=== PATIENT | female | born 1955 | race Native Hawaiian/Other Pacific Islander ===

== ENCOUNTER 2017-08-28 14:50 | Outpatient (CLI) | payer OTHER ==
[~2017-08-28 14:50] MED LIST: CELEXA20 MG PO; ESTERIFIED ESTROGENS PO; LUNESTA2 MG OR; OMEP40CA PO; SIMV40TA57
== END 2017-08-28 14:53 | disposition short-term general hospital (02) ==
LOC: AMB 14:50
DX: R07.89 Other chest pain (principal); M54.89 Other dorsalgia
CPT/HCPCS: A0425; A0427

== ENCOUNTER 2017-08-28 15:01 | Emergency (ER) | payer OTHER ==
[~2017-08-28] VITALS: Ht 167.6 cm; Wt 70.3 kg
[2017-08-28 14:58] VITALS: TEMP 97.3
[2017-08-28 15:19] LABS: PLATELET COUNT 339 K/uL (152-353)
[2017-08-28 15:24] LABS: POTASSIUM 3.8 mmol/L (3.6-5.2)
[2017-08-28 16:41] VITALS: BP 160/75
== END 2017-08-28 16:41 | disposition home or self-care (01) ==
LOC: ED 15:01
DX: M51.34 Other intervertebral disc degeneration, thoracic region (principal); M47.894 Other spondylosis, thoracic region
CPT/HCPCS: 80053; 81000; 85027; 93005; 96374; 99283; J1885

== ENCOUNTER 2018-01-11 09:20 | Outpatient (CLI) | payer OTHER | END 2018-01-11 23:24 | disposition home or self-care (01) | LOC: MAMMO 09:20 | DX: Z12.31 Encounter for screening mammogram for malignant neoplasm of breast (principal) ==

== ENCOUNTER 2020-04-27 09:43 | Outpatient (CLI) | payer OTHER | END 2020-04-27 19:10 | disposition home or self-care (01) | LOC: MAMMO 09:43 | PROVIDERS: ATTEND Nurse Practitioner Family | DX: Z12.31 Encounter for screening mammogram for malignant neoplasm of breast (principal); Z13.820 Encounter for screening for osteoporosis ==

== ENCOUNTER 2022-02-10 08:25 | Outpatient (CLI) | payer OTHER | END 2022-02-10 19:02 | disposition home or self-care (01) | LOC: RAD 08:25 | PROVIDERS: ATTEND Registered Nurse | DX: R05.9 Cough, unspecified (principal) ==

== ENCOUNTER 2022-03-21 08:16 | Outpatient (CLI) | payer OTHER | END 2022-03-21 19:53 | disposition home or self-care (01) | LOC: MRI 08:16 | PROVIDERS: ATTEND Nurse Practitioner Family | DX: R25.1 Tremor, unspecified (principal) ==